=== PATIENT | male | born 1990 | race Hispanic/Latino ===

== ENCOUNTER 2020-08-30 11:43 | Emergency (ER) | payer SELFPAY ==
[2020-08-30 18:28] LABS: SARS-CoV-2 MS2 Positive; SARS-CoV-2 N Gene Negative; SARS-CoV-2 S Gene Negative; SARS-CoV-2 by NAA Not Detected (NotDetected); SARS-CoV-2 orf1ab Negative
== END 2020-08-30 12:22 | disposition home or self-care (01) ==
LOC: ERS 11:43
DX: R05 Cough (principal); Z20.828 Contact with and (suspected) exposure to other viral communicable diseases
CPT/HCPCS: 87635; 99283; U0003

== ENCOUNTER 2021-11-08 10:56 | Emergency (ER) | payer SELFPAY ==
[2021-11-08 20:52] LABS: SARS-CoV-2 PCR by NAA Not Detected (NotDetected)
== END 2021-11-08 11:40 | disposition home or self-care (01) ==
LOC: ERS 10:56
DX: R05.9 Cough, unspecified (principal); R52 Pain, unspecified; R68.83 Chills (without fever); F17.210 Nicotine dependence, cigarettes, uncomplicated; Z20.822 Contact with and (suspected) exposure to COVID-19
CPT/HCPCS: 99283; U0003; U0005